=== PATIENT | male | born 1970 | race Caucasian/White ===

== ENCOUNTER → 2020-05-25 | Outpatient (CLI) | payer SELFPAY ==
[~2020-05-25] MED LIST: ACID RELUX MED; ANTIVERT/2525 MG PO; AUGMENTIN 875875 MG PO; BACTRIM DS 8001 TA1 PO; BP PILL; DURICEF500 MG PO; GOOD NEIGHBOR150 MG PO; HYDROCODONE BIT1 T11 PO; MEDROL DOSEPAK4 MG PO; MOTRIN800 MG PO; PREDNICOT20 MG PO; PROVENTIL0.09 MG/A1 INH; VIBRAMYCIN100 MG PO; VICODIN 5-3001 EACH PO; ZANTAC150 MG PO; ZOFRAN4 MG PO
== END ==
LOC: COVID19 13:23
PROVIDERS: ATTEND Internal Medicine
DX: Z20.828 Contact with and (suspected) exposure to other viral communicable diseases (principal)